=== PATIENT | female | born 1995 ===

== ENCOUNTER 2019-12-24 22:45 | Emergency (ER) | payer OTHER ==
[~2019-12-24] VITALS: Ht 165 cm; Wt 84.0 kg
[2019-12-24 23:27] LABS: BILIRUBIN,URINE NEGATIVE (NEGATIVE); CLARITY,URINE CLOUDY; COLOR,URINE ORANGE; GLUCOSE, URINE (UA) NEGATIVE (NEGATIVE); KETONES,URINE NEGATIVE (NEGATIVE); LEUKOCYTE ESTERASE ,URINE TRACE (NEGATIVE); NITRITE,URINE NEGATIVE (NEGATIVE); PROTEIN,URINE 1+ (NEGATIVE)
[2019-12-25 00:03] LABS: BACTERIA,URINE FEW /HPF; RBC,URINE TNTC /HPF; SQUAMOUS EPITHELIAL CELL,UR 0-2 /HPF
[2019-12-25 00:04] LABS: AMORPHOUS SEDIMENT,UR FEW AMOR URATES /LPF
[2019-12-25 00:20] LABS: BASOPHILS # (AUTO) 0.1 10^3/uL (0.0-0.1); BASOPHILS % (AUTO) 0 % (0-10); EOSINOPHILS # (AUTO) 0.2 10^3/uL (0.0-0.3); EOSINOPHILS % (AUTO) 2 % (0-10); HEMATOCRIT 38 % (35-52); HEMOGLOBIN 12.8 G/DL (11.5-16.0); LYMPHOCYTES # (AUTO) 4.1 X 10^3 (1.0-4.0); LYMPHOCYTES % (AUTO) 36 % (12-44); MEAN CORPUSCULAR HEMOGLOBIN 29 PG (25-34); MEAN CORPUSCULAR HGB CONC 34 G/DL (32-36); MEAN CORPUSCULAR VOLUME 87 FL (80-99); MEAN PLATELET VOLUME 9.3 FL (7.4-10.4); MONOCYTES # (AUTO) 0.8 X 10^3 (0.0-1.0); MONOCYTES % (AUTO) 7 % (0-12); NEUTROPHILS # (AUTO) 6.4 X 10^3 (1.8-7.8); NEUTROPHILS % (AUTO) 55 % (42-75); PLATELET COUNT 342 10^3/uL (130-400); RED CELL DISTRIBUTION WIDTH 13.1 % (10.0-14.5); WHITE BLOOD COUNT 11.6 10^3/uL (4.3-11.0)
--- NOTE | 2019-12-25 00:23 | ED GU-Female ---
General Chief Complaint: TESTING TECH Stated Complaint: HEAVY BLEEDING 10 WKS PREG Nursing Triage Note: PT STATES SHE HAS HAD IRREGULAR DARK RED SPOTTING FOR ONE WEEK, TODAY HER BLEEDING INCREASED IN INTENSITY, PT STATES SHE HAS HAD TO CHANGE HER PAD THREE TIMES. Nursing Sepsis Screen: Possible Severe Sepsis Risk Source: patient Exam Limitations: no limitations History of Present Illness Date Seen by Provider: Dec 24, 2019 Time Seen by Provider: 23:25 Initial Comments Here with report of vaginal bleeding over the last week that has increased toda y. She reports that she is approximately 10 weeks as verified by ultrasound last month in [place]. She does not have OB yet. This is her second . Denies nausea, vomiting, dysuria or diarrhea. No recent injuries. Last sexual activity 2 weeks ago. Timing/Duration: getting worse Severity/Quality: mild, cramping Location: RLQ, LLQ, suprapubic Radiation: none Activities at Onset: none Sexual [place] History: less than 2 months ago, single partner Modifying Factors: Improves With Resting Associated Symptoms: abdominal pain; No dysuria, No fever/chills, No lower back pain, No nausea/vomiting, No urinary frequency Allergies and Home Medications Patient Home Medication List Home Medication List Reviewed: Yes Review of Systems Review of Systems Constitutional: no symptoms reported Respiratory: no symptoms reported Cardiovascular: no symptoms reported Gastrointestinal: see HPI Genitourinary: see HPI : Yes Expected Date of Delivery: Jul 17, 2020 Musculoskeletal: no symptoms reported Past Fubofdb-Pcvlss-Mpcrvv Hx Past Med/Social Hx: Reviewed Nursing Past Med/Soc Hx Patient Social History Alcohol Use: Denies Use Recreational Drug Use: No Smoking Status: Never a Smoker Recent Foreign Travel: No Contact w/Someone Who Travel: No Recent Infectious Disease Expo: No Recent Hopitalizations: No Physical Abuse: No Sexual Abuse: No Mistreated: No Fear: No Immunizations Up To Date Tetanus Booster (TDap): Less than 5yrs PED Vaccines UTD: Yes Past Medical History Surgeries: Yes Section Respiratory: No Cardiac: No Neurological: No : Yes Expected Date of Delivery: Jul 17, 2020 Female Reproductive Disorders: Endometriosis Genitourinary: No Gastrointestinal: No Musculoskeletal: No Endocrine: No HEENT: No Cancer: No Psychosocial: No Integumentary: No Family Medical History Reviewed Nursing Family Hx Physical Exam Vital Signs Vital Signs - First Documented 12/24/19 23:09 Temp 37.3 Pulse 110 Resp 20 B/P (MAP) 131/96 (108) Pulse Ox 99 O2 Delivery Room Air Capillary Refill : Less Than 3 Seconds Height, Weight, BMI Height: '" Weight: lbs. oz. kg; 30.00 BMI Method: General Appearance: WD/WN, no apparent distress Cardiovascular: regular rate, rhythm, no murmur Respiratory: lungs clear, normal breath sounds Gastrointestinal: non tender, soft, no organomegaly, no pulsatile mass Back: normal inspection, no CVA tenderness, no vertebral tenderness Extremities: normal range of motion, normal inspection, no pedal edema, no calf tenderness, pelvis stable, other (mild left hip tenderness that she states is not uncommon when she is .) Neurologic/Psychiatric: alert, oriented x 3 Skin: normal color, warm/dry Progress/Results/Core Measures Suspected Sepsis Recent Fever Within 48 Hours: Yes Infection Criteria Present: Suspected New Infection New/Unexplained Altered Menta: No Sepsis Screen: Possible Severe Sepsis Risk SIRS Temperature: Pulse: 110 Respiratory Rate: 20 Laboratory Tests 12/24/19 23:47: White Blood Count 11.6H Blood Pressure 131 /96 Mean: 108 Laboratory Tests 12/24/19 23:47: Creatinine 0.86, Platelet Count 342, Total Bilirubin 0.2 Results/Orders Lab Results Laboratory Tests Test 12/24/19 23:12 12/24/19 23:47 Range/Units Urine Color ORANGE Urine Clarity CLOUDY Urine pH 6.0 5-9 Urine Specific [place] >=1.030 1.016-1.022 Urine Protein 1+ H NEGATIVE Urine Glucose (UA) NEGATIVE NEGATIVE Urine Ketones NEGATIVE NEGATIVE Urine Nitrite NEGATIVE NEGATIVE Urine Bilirubin NEGATIVE NEGATIVE Urine Urobilinogen 0.2 < = 1.0 MG/DL Urine Leukocyte Esterase TRACE H NEGATIVE Urine RBC (Auto) 3+ H NEGATIVE Urine RBC TNTC H /HPF Urine WBC 5-10 H /HPF Urine Squamous Epithelial Cells 0-2 /HPF Urine Crystals PRESENT H /LPF Urine Amorphous Sediment FEW COSTA URATES H /LPF Urine Bacteria FEW H /HPF Urine Casts NONE /LPF Urine Mucus NEGATIVE /LPF Urine Culture Indicated YES White Blood Count 11.6 H 4.3-11.0 10^3/uL Red Blood Count 4.35 4.35-5.85 10^6/uL Hemoglobin 12.8 11.5-16.0 G/DL Hematocrit 38 35-52 % Mean Corpuscular Volume 87 80-99 FL Mean Corpuscular Hemoglobin 29 25-34 PG Mean Corpuscular Hemoglobin Concent 34 32-36 G/DL Red Cell Distribution Width 13.1 10.0-14.5 % Platelet Count 342 130-400 10^3/uL Mean Platelet Volume 9.3 7.4-10.4 FL Neutrophils (%) (Auto) 55 42-75 % Lymphocytes (%) (Auto) 36 12-44 % Monocytes (%) (Auto) 7 0-12 % Eosinophils (%) (Auto) 2 0-10 % Basophils (%) (Auto) 0 0-10 % Neutrophils # (Auto) 6.4 1.8-7.8 X 10^3 Lymphocytes # (Auto) 4.1 H 1.0-4.0 X 10^3 Monocytes # (Auto) 0.8 0.0-1.0 X 10^3 Eosinophils # (Auto) 0.2 0.0-0.3 10^3/uL Basophils # (Auto) 0.1 0.0-0.1 10^3/uL Sodium Level 136 135-145 MMOL/L Potassium Level 3.9 3.6-5.0 MMOL/L Chloride Level 104 98-107 MMOL/L Carbon Dioxide Level 21 21-32 MMOL/L Anion Gap 11 5-14 MMOL/L Blood Urea Nitrogen 12 7-18 MG/DL Creatinine 0.86 0.60-1.30 MG/DL Estimat Glomerular Filtration Rate > 60 BUN/Creatinine Ratio 14 Glucose Level 90 70-105 MG/DL Calcium Level 9.4 8.5-10.1 MG/DL Corrected Calcium 9.2 8.5-10.1 MG/DL Total Bilirubin 0.2 0.1-1.0 MG/DL Aspartate Amino Transf (AST/SGOT) 26 5-34 U/L Alanine Aminotransferase (ALT/SGPT) 23 0-55 U/L Alkaline Phosphatase 99 40-136 U/L Total Protein 7.7 6.4-8.2 GM/DL Albumin 4.3 3.2-4.5 GM/DL Human Chorionic Gonadotropin, Quant 5905 H <5 MIU/ML My Orders Orders - NADIA LANDIS MD Cbc With Automated Diff (12/24/19 23:15) Abo Rh Type (12/24/19 23:15) Comprehensive Metabolic Panel (12/24/19 23:15) Vital Signs/I&O 12/24/19 23:09 Temp 37.3 Pulse 110 Resp 20 B/P (MAP) 131/96 (108) Pulse Ox 99 O2 Delivery Room Air Capillary Refill : Less Than 3 Seconds Blood Pressure Mean: 108 Progress Note : Progress Note Seen and evaluated. Labs and UA ordered. Bedside ultrasound shows pole at approximately 8 weeks by crown-rump length with no heart tones. Border of structure is irregular and tattered. Findings consistent with demise. This was discussed with the patient. She is unsure of her blood type. We will evaluate for the need for RhoGAM administration. 0020: I did discuss the case with Dr. Riddle, on-call for [facility]. She will need follow-up and he will assist with getting the information to [facility] as well as calling the patient with outpatient ultrasound results. I will order outpatient ultrasound for formal study due to concerns of demise. He will call the patient at [phone]. I have instructed the patient to call [facility] for appointment due to concerns of miscarriage. I will send a copy of the chart to them as well. Pending ABO Rh studies. Monitor patient. 0059: Patient's blood type is O+. Discharged home with return precautions. Patient verbalize understanding instructions and agreement with plan. Departure Impression Primary Impression: Incomplete miscarriage Disposition: 01 HOME, SELF-CARE Condition: Stable Departure-Patient Inst. Decision time for Depature: 00:29 Referrals: ARTEMIO RIDDLE MD NO,LOCAL PHYSICIAN (PCP) Primary Care Physician [facility] [place] Patient Instructions: Miscarriage (DC) Add. Discharge Instructions: All discharge instructions reviewed with patient and/or family. Voiced understanding. You will return in the morning for ultrasound. Bring order with you. You need to call [facility] for appointment. Return for worse pain, fever, bleeding greater than 2 pads per hour for more than 2 hours, weakness, foul- smelling vaginal discharge or other concerns as needed. Copy Copies To 1: ARTEMIO RIDDLE MD Copies To 2: LEONARDO LYLE TIMOTHY D MD Dec 25, 2019 00:23
[2019-12-25 00:39] LABS: ALANINE AMINOTRANSFERASE 23 U/L (0-55); ALBUMIN 4.3 GM/DL (3.2-4.5); ALKALINE PHOSPHATASE 99 U/L (40-136); BILIRUBIN,TOTAL 0.2 MG/DL (0.1-1.0); BUN/CREATININE RATIO 14; CALCIUM 9.4 MG/DL (8.5-10.1); CARBON DIOXIDE 21 MMOL/L (21-32); CHLORIDE 104 MMOL/L (98-107); CREATININE SERUM 0.86 MG/DL (0.60-1.30); GFR ESTIMATED > 60; GLUCOSE 90 MG/DL (70-105); POTASSIUM 3.9 MMOL/L (3.6-5.0); SODIUM 136 MMOL/L (135-145); TOTAL PROTEIN 7.7 GM/DL (6.4-8.2)
[2019-12-25 01:05] VITALS: BP 120/63
[2019-12-26] MEDS ORDERED: MISO200T PO (03:00)
[2019-12-26] MEDS ORDERED: DOXY100T2 PO (03:00)
[2019-12-26] MEDS ORDERED: ACHD5005 PO (03:00)
== END 2019-12-25 01:04 | disposition home or self-care (01) ==
LOC: ER 22:49
DX: O03.4 Incomplete spontaneous abortion without complication (principal); Z3A.10 10 weeks gestation of pregnancy
CPT/HCPCS: 36415; 80053; 81000; 84702; 84703; 85025; 86900; 86901; 87088

== ENCOUNTER → 2019-12-25 | Outpatient (CLI) | payer SELFPAY ==
[~2019-12-25] MED LIST: ACHD5005 PO; DOXY100T2 PO; MISO200T PO
--- NOTE | 2019-12-25 10:40 | Diagnostic Imaging Report ---
PROCEDURE: US OB SINGLE FETUS <14 WKS. TECHNIQUE: Multiple Real-time grayscale images were obtained over the gravid uterus in various projections. INDICATION: Bleeding. COMPARISON: There are no prior studies available for comparison. FINDINGS: There is a gestational sac within the uterus containing a single pole. The crown/rump length indicates a gestational age of 8 weeks 5 days +/- 1 week; however, cardiac activity could not be identified. There are no obvious abnormalities identified otherwise. The amniotic fluid volume is within normal limits. There is no pelvic mass or free fluid collection evident. IMPRESSION: 1. The findings would be consistent with demise. 2. These results were discussed with Dr. Mendoza by our sonologist. CRITICAL FINDING Dictated by: Dictated on workstation # [id number]
== END ==
LOC: RAD 08:54
PROVIDERS: ATTEND Emergency Medicine
DX: O03.9 Complete or unspecified spontaneous abortion without complication (principal)
CPT/HCPCS: 76801

== ENCOUNTER 2019-12-26 00:35 | Emergency (ER) | payer OTHER ==
[~2019-12-26] VITALS: Ht 167 cm; Wt 84.0 kg
[2019-12-26] MEDS ORDERED: NS IV 1000 ML 1,000 ML IV SCH (01:15)
--- NOTE | 2019-12-26 01:24 | ED GU-Female ---
General Chief Complaint: SOFTWARE RELEASE ENGINEER Stated Complaint: POSS MISCARRIAGE,HEAVY VAG BLEEDING Source: patient, spouse Exam Limitations: no limitations History of Present Illness Date Seen by Provider: Dec 26, 2019 Time Seen by Provider: 01:00 Initial Comments Patient resents ER by private conveyance with her significant other chief complaint she has continued to have some progressively worsening bleeding over the past week. She was seen couple days ago in this ER and told miscarriage. She had an ultrasound done outpatient. She has not followed up with any care at this time. Her last menstrual period was over around September 30. For the past 12-14 hour she's been having increasing bleeding with blood clots larger than a chicken egg and no tissue or membranes. She's not on blood thinners or any medications. She says she has a history of being anemic and had to receive blood products with her last . She is a 12 weeks 3 days post conception. She's had no problems with dysuria or discharge nor history of STD. She does not have any known other medical problems. Records indicate she is O+. No history of abdominal surgeries. She has outpatient follow-up plans in the next couple days with Dr. Chung. Allergies and Home Medications Allergies Coded Allergies: codeine (Verified Allergy, Unknown, 12/26/19) Patient Home Medication List Home Medication List Reviewed: Yes Review of Systems Review of Systems Constitutional: No chills, No diaphoresis, No fever; weakness EENTM: No ear discharge, No hearing loss, No ear pain Respiratory: No cough, No short of breath Cardiovascular: No chest pain, No edema, No Hx of Intervention Gastrointestinal: abdominal pain (bilateral lower abdomen); No constipation, No diarrhea Genitourinary: denies burning, denies discharge Musculoskeletal: No back pain, No joint pain Hematologic/Lymphatic: Anemia; Denies Blood Clots All Other Systemes Reviewed Negative Unless Noted: Yes Past Kbmkfwi-Gyqhiv-Jqldbh Hx Patient Social History Alcohol Use: Denies Use Recreational Drug Use: No Smoking Status: Never a Smoker Recent Foreign Travel: No Contact w/Someone Who Travel: No Recent Hopitalizations: No Immunizations Up To Date Tetanus Booster (TDap): Less than 5yrs PED Vaccines UTD: Yes Past Medical History Surgeries: Yes Section Respiratory: No Cardiac: No Neurological: No Female Reproductive Disorders: Endometriosis Genitourinary: No Gastrointestinal: No Musculoskeletal: No Endocrine: No HEENT: No Cancer: No Psychosocial: No Integumentary: No Physical Exam Vital Signs Capillary Refill : Height, Weight, BMI Height: '" Weight: lbs. oz. kg; 30.00 BMI Method: General Appearance: WD/WN, mild distress HEENT: PERRL/EOMI; No pharynx normal (dry oral mucosa) Neck: full range of motion, normal inspection Cardiovascular: normal peripheral pulses, regular rate, rhythm Respiratory: normal breath sounds, no respiratory distress, no accessory muscle use Gastrointestinal: normal bowel sounds, soft, tenderness (below the umbilicus bilaterally), other (no mesenteric symptoms) Extremities: normal range of motion, normal capillary refill Neurologic/Psychiatric: alert, normal mood/affect, oriented x 3 Skin: normal color, warm/dry Progress/Results/Core Measures Suspected Sepsis SIRS Temperature: Pulse: Respiratory Rate: Laboratory Tests 12/26/19 01:15: White Blood Count 13.2H Blood Pressure / Mean: Laboratory Tests 12/26/19 01:15: Creatinine 0.75, Platelet Count 326, Total Bilirubin 0.2 Results/Orders Lab Results Laboratory Tests Test 12/26/19 01:15 Range/Units White Blood Count 13.2 H 4.3-11.0 10^3/uL Red Blood Count 4.08 L 4.35-5.85 10^6/uL Hemoglobin 12.0 11.5-16.0 G/DL Hematocrit 36 35-52 % Mean Corpuscular Volume 87 80-99 FL Mean Corpuscular Hemoglobin 29 25-34 PG Mean Corpuscular Hemoglobin Concent 34 32-36 G/DL Red Cell Distribution Width 13.1 10.0-14.5 % Platelet Count 326 130-400 10^3/uL Mean Platelet Volume 9.0 7.4-10.4 FL Neutrophils (%) (Auto) 61 42-75 % Lymphocytes (%) (Auto) 31 12-44 % Monocytes (%) (Auto) 6 0-12 % Eosinophils (%) (Auto) 2 0-10 % Basophils (%) (Auto) 0 0-10 % Neutrophils # (Auto) 8.0 H 1.8-7.8 X 10^3 Lymphocytes # (Auto) 4.1 H 1.0-4.0 X 10^3 Monocytes # (Auto) 0.8 0.0-1.0 X 10^3 Eosinophils # (Auto) 0.3 0.0-0.3 10^3/uL Basophils # (Auto) 0.1 0.0-0.1 10^3/uL Sodium Level 137 135-145 MMOL/L Potassium Level 3.8 3.6-5.0 MMOL/L Chloride Level 103 98-107 MMOL/L Carbon Dioxide Level 22 21-32 MMOL/L Anion Gap 12 5-14 MMOL/L Blood Urea Nitrogen 14 7-18 MG/DL Creatinine 0.75 0.60-1.30 MG/DL Estimat Glomerular Filtration Rate > 60 BUN/Creatinine Ratio 19 Glucose Level 96 70-105 MG/DL Calcium Level 9.9 8.5-10.1 MG/DL Corrected Calcium 9.7 8.5-10.1 MG/DL Total Bilirubin 0.2 0.1-1.0 MG/DL Aspartate Amino Transf (AST/SGOT) 22 5-34 U/L Alanine Aminotransferase (ALT/SGPT) 22 0-55 U/L Alkaline Phosphatase 105 40-136 U/L Total Protein 7.4 6.4-8.2 GM/DL Albumin 4.2 3.2-4.5 GM/DL My Orders Orders - SARAH VIDAL Type And Screen (12/26/19 01:11) Cbc With Automated Diff (12/26/19:11) Comprehensive Metabolic Panel (12/26/19 01:11) Ua Culture If Indicated (12/26/19:11) Ed Iv/Invasive Line Start (12/26/19 01:11) Ed Iv/Invasive Line Start (12/26/19 01:15) Ns Iv 1000 Ml (Sodium Chloride 0.9%) (12/26/19 01:15) Vital Signs/I&O Capillary Refill : Progress Note : Time: 01:27 Progress Note It sounds like she's had significant amount of bleeding so we will check some labs to discover actionable anemia. She has follow-up plans with Dr. Chung but she has not established care with him yet. Ultrasound was reviewed from yesterday which demonstrated demise 8 weeks 5 days plus or minus. She has some borderline soft blood pressure around 100 systolic and heart rate in the 90s so we'll give her a liter fluids. Type and screen obtained. Consults Consults : Consulting Physician: JOSE OHARA DO Consults Notes Discussed the case and he agrees with the plan for Cytotec. He would also set her up with Cytotec every 6 hours for the next 3 days and give her some for pain as well as doxycycline to cover her for infection. Departure Impression Primary Impression: Incomplete miscarriage with blood clot Disposition: HOME, SELF-CARE Condition: Stable Departure-Patient Inst. Decision time for Depature: 02:46 Referrals: NO,LOCAL PHYSICIAN (PCP/Family) Primary Care Physician Patient Instructions: Miscarriage (DC) Add. Discharge Instructions: Cytotec 600 g every 6 hours until completion of miscarriage. Tylenol and ibuprofen are okay for pain. Hydrocodone for breakthrough pain. One tablet every 6 hours. It may cause constipation and/or drowsiness. MiraLAX can help with the constipation. Doxycycline 1 tablet twice a day for the next 7 days. If you are passing out having chest pain, shortness of breath or other worrisome symptoms please return to the ER. Keep your follow-up appointments with Dr. Chung. All discharge instructions reviewed with patient and/or family. Voiced understanding. Scripts Hydrocodone Bit/Acetaminophen (Hydrocodone/Acetaminophen 5/325mg Tablet) 1 Tab Tab 1 EACH PO Q4-6HR PRN for PAIN-MODERATE MDD 10 for 3 Days, #14 TAB 0 Refills Prov: SARAH VIDAL 12/26/19 Misoprostol (Cytotec) 200 Mcg Tablet 600 MCG PO Q6H PRN for vaginal bleeding for 3 Days, #36 TAB 0 Refills Prov: SARAH VIDAL 12/26/19 Doxycycline Hyclate (Doxycycline Hyclate) 100 Mg Tablet 100 MG PO BID for 7 Days, #14 TAB 0 Refills Prov: SARAH VIDAL 12/26/19 Work/School Note: Work Release Form Date Seen in the Emergency Department: Dec 26, 2019 Return to Work: Jan 01, 2020 Restrictions: No Restrictions SARAH VIDAL Dec 26, 2019 01:24
[2019-12-26 01:29] LABS: BASOPHILS # (AUTO) 0.1 10^3/uL (0.0-0.1); BASOPHILS % (AUTO) 0 % (0-10); EOSINOPHILS # (AUTO) 0.3 10^3/uL (0.0-0.3); EOSINOPHILS % (AUTO) 2 % (0-10); HEMATOCRIT 36 % (35-52); LYMPHOCYTES # (AUTO) 4.1 X 10^3 (1.0-4.0); LYMPHOCYTES % (AUTO) 31 % (12-44); MEAN CORPUSCULAR HEMOGLOBIN 29 PG (25-34); MEAN CORPUSCULAR HGB CONC 34 G/DL (32-36); MEAN CORPUSCULAR VOLUME 87 FL (80-99); MONOCYTES # (AUTO) 0.8 X 10^3 (0.0-1.0); MONOCYTES % (AUTO) 6 % (0-12); NEUTROPHILS % (AUTO) 61 % (42-75); PLATELET COUNT 326 10^3/uL (130-400); RED CELL DISTRIBUTION WIDTH 13.1 % (10.0-14.5); WHITE BLOOD COUNT 13.2 10^3/uL (4.3-11.0)
[2019-12-26 01:48] LABS: ALANINE AMINOTRANSFERASE 22 U/L (0-55); ALBUMIN 4.2 GM/DL (3.2-4.5); ALKALINE PHOSPHATASE 105 U/L (40-136); BILIRUBIN,TOTAL 0.2 MG/DL (0.1-1.0); BUN/CREATININE RATIO 19; CALCIUM 9.9 MG/DL (8.5-10.1); CARBON DIOXIDE 22 MMOL/L (21-32); CHLORIDE 103 MMOL/L (98-107); CREATININE SERUM 0.75 MG/DL (0.60-1.30); GFR ESTIMATED > 60; GLUCOSE 96 MG/DL (70-105); POTASSIUM 3.8 MMOL/L (3.6-5.0); SODIUM 137 MMOL/L (135-145); TOTAL PROTEIN 7.4 GM/DL (6.4-8.2)
[2019-12-26] MEDS ORDERED: MISO200T PO (03:00)
[2019-12-26] MEDS ORDERED: ACHD5005 PO (03:00)
[2019-12-26] MEDS ORDERED: DOXY100T2 PO (03:00)
[2019-12-26] MEDS ORDERED: DOXYCYCLINE 100 MG (VIBRAMYCIN) TABLET PO STA (03:01)
[2019-12-26] MEDS ORDERED: RX-HYDROCODONE/APAP 5/325 MG #4 TAB PK PO PRN (03:15)
[2019-12-26] MEDS ORDERED: MISOPROSTOL 100 MCG (CYTOTEC) TAB PO ONE (03:15)
[2019-12-26 03:22] VITALS: BP 96/56
== END 2019-12-26 03:30 | disposition home or self-care (01) ==
LOC: EDUNIT# 00:35 → ER 00:37
DX: O03.4 Incomplete spontaneous abortion without complication (principal); Z88.5 Allergy status to narcotic agent
CPT/HCPCS: 36415; 80053; 85025; 86850; 86900; 86901